=== PATIENT | female | born 1995 | race American Indian/Alaskan Native ===

== ENCOUNTER 2021-05-27 13:44 | Emergency (ER) | payer OTHER ==
[2021-05-27] MEDS ORDERED: KETOROLAC 30 MG/1 ML INJ IM ONE (16:59)
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
[2021-05-27 17:23] VITALS: BP 127/72
== END 2021-05-27 17:37 | disposition home or self-care (01) ==
LOC: ED 13:44
DX: M54.50 Low back pain, unspecified (principal); Z79.899 Other long term (current) drug therapy; V89.2XXA Person injured in unspecified motor-vehicle accident, traffic, initial encounter; Y93.89 Activity, other specified; Y92.488 Other paved roadways as the place of occurrence of the external cause; Y99.8 Other external cause status
CPT/HCPCS: 96372; 99282; J1885

== ENCOUNTER 2021-07-18 09:04 | Emergency (ER) | payer OTHER ==
[2021-07-18] MEDS ORDERED: ALUM-MAG HYDROXIDE-SIMETHICONE 200-200-20MG/5ML ORAL LIQD 30 ML PO ONE (09:15)
[2021-07-18] MEDS ORDERED: LIDOCAINE VISCOUS 2% 15 ML ORAL LIQD PO ONE (09:15)
[2021-07-18] MEDS ORDERED: FAMOTIDINE 20 MG TAB PO ONE (09:15)
[2021-07-18 09:17] VITALS: BP 125/84
--- NOTE | 2021-07-18 09:17 | Emergency Department Report ---
ED Abdominal Pain HPI - General Chief Complaint: Abdominal Pain Stated Complaint: HEADACHE/UPPER STOMACH PAIN Time Seen by Provider: 07/18/21 09:15 Source: patient Mode of arrival: Ambulatory Limitations: No Limitations - History of Present Illness Initial Comments: Patient is a 25-year-old morbidly obese female that comes to the emergency room with epigastric pain and nausea after eating at [employer]. Patient denies nausea vomiting, diarrhea or constipation. Denies fever or chills. Patient denies any medical history. Patient on arrival to the ER is ambulatory, [id number] and in no acute distress MD Complaint: abdominal pain -: Sudden Location: epigastric Improves With: eating Associated Symptoms: denies other symptoms, nausea. denies: vomiting, diarrhea, fever, chills, constipation, dysuria, hematemesis, hematochezia, melena, hematuria, anorexia, syncope - Related Data Previous Rx's Medication Instructions Recorded Last Taken Type Famotidine [Pepcid] 20 mg PO DAILY #30 tablet 07/18/21 Unknown Rx Allergies Allergy/AdvReac Type Severity Reaction Status Date / Time No Known Allergies Allergy Verified 05/27/21 15:51 ED Review of Systems ROS: Stated complaint: HEADACHE/UPPER STOMACH PAIN Other details as noted in HPI Comment: All other systems reviewed and negative ED Past Medical Hx - Past Medical History Previous Medical History?: No Additional medical history: obese - Surgical History Past Surgical History?: No - Family History Family history: no significant - Social History Smoking Status: Never Smoker Substance Use Type: None - Medications Home Medications: Home Medications Medication Instructions Recorded Confirmed Last Taken Type Famotidine [Pepcid] 20 mg PO DAILY #30 tablet 07/18/21 Unknown Rx ED Physical Exam - General Limitations: No Limitations General appearance: alert, in no apparent distress - Head Head exam: Present: atraumatic, normocephalic - Eye Eye exam: Present: normal appearance - ENT ENT exam: Present: mucous membranes moist - Neck Neck exam: Present: normal inspection - Respiratory Respiratory exam: Present: normal lung sounds bilaterally. Absent: respiratory distress - Cardiovascular Cardiovascular Exam: Present: regular rate, normal rhythm. Absent: systolic murmur, diastolic murmur, rubs, gallop - GI/Abdominal GI/Abdominal exam: Present: soft, normal bowel sounds - Extremities Exam Extremities exam: Present: normal inspection - Back Exam Back exam: Present: normal inspection - Neurological Exam Neurological exam: Present: alert, oriented X3 - Psychiatric Psychiatric exam: Present: normal affect, normal mood - Skin Skin exam: Present: warm, dry, intact, normal color. Absent: rash ED Course Vital Signs 07/18/21 09:14 Temperature 99.4 F Pulse Rate 95 H Respiratory 16 Rate Blood Pressure 125/84 O2 Sat by Pulse 98 Oximetry ED Medical Decision Making - Medical Decision Making Vital Signs 07/18/21 09:14 Temperature 99.4 F Pulse Rate 95 H Respiratory 16 Rate Blood Pressure 125/84 O2 Sat by Pulse 98 Oximetry Patient given a GI cocktail on arrival. Patient reports the GI cocktail did help her pain. Patient is in no acute distress. She is been playing on her phone the entire time she has been in the ER. She has had no nausea or vomiting. Vital signs are normal. She is taking p.o. She is very aloof when her H&P is conducted. She is a teacher. Vital Signs 07/18/21 09:14 Temperature 99.4 F Pulse Rate 95 H Respiratory 16 Rate Blood Pressure 125/84 O2 Sat by Pulse 98 Oximetry Abdominal exam is normal. Patient being discharged home with discharge plan of care including PCP/GI follow-up. She is been counseled on care and management of GERD patient verbalizes understanding - Differential Diagnosis GERD Critical care attestation.: If time is entered above; I have spent that time in minutes in the direct care of this critically ill patient, excluding procedure time. ED Disposition Clinical Impression: GERD (gastroesophageal reflux disease) Disposition: 01 HOME / SELF CARE / HOMELESS Is pt being admited?: No Does the pt Need Aspirin: No Condition: Stable Instructions: Indigestion, [id number], Abdominal Pain (ED) Additional Instructions: bland diet stay well hydrated with water Follow-up with PCP and GI as we discussed Referrals below Avoid spicy food Avoid alcohol Avoid Motrin Medication as ordered Prescriptions: Famotidine [Pepcid] 20 mg PO DAILY #30 tablet Referrals: RAYMOND FITZPATRICK MD [Staff Physician] - 3-5 Days BEA TAVAREZ MD [Staff Physician] - 3-5 Days Forms: Work/School Release Form(ED) Time of Disposition: 09:16
== END 2021-07-18 10:55 | disposition home or self-care (01) ==
LOC: ED 09:04
DX: K21.9 Gastro-esophageal reflux disease without esophagitis (principal)
CPT/HCPCS: 99282

== ENCOUNTER 2021-08-20 14:10 | Emergency (ER) | payer OTHER ==
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
[2021-08-20 22:01] VITALS: BP 124/78
== END 2021-08-20 22:15 | disposition home or self-care (01) ==
LOC: ED 14:10
DX: S83.91XA Sprain of unspecified site of right knee, initial encounter (principal); V89.2XXA Person injured in unspecified motor-vehicle accident, traffic, initial encounter; Y93.89 Activity, other specified; Y92.89 Other specified places as the place of occurrence of the external cause; Y99.8 Other external cause status
CPT/HCPCS: 99282

== ENCOUNTER 2021-10-17 13:51 | Emergency (ER) | payer OTHER ==
[2021-10-17] MEDS ORDERED: cephALEXin 500 MG CAP PO ONE (14:58)
[2021-10-17] MEDS ORDERED: dexAMETHasone 4 MG/ML VIAL IV ONE (14:58)
[2021-10-17] MEDS ORDERED: ACETAMINOPHEN 500 MG TAB PO ONE (14:58)
--- NOTE | 2021-10-17 14:58 | Emergency Department Report ---
ED ENT HPI - General Chief complaint: Sore Throat Stated complaint: SORETHROAT/FEVER/NAUSEA Time Seen by Provider: 10/17/21 14:42 Source: patient Mode of arrival: Ambulatory Limitations: No Limitations - History of Present Illness Initial comments: Patient is a 26-year-old female that comes to the ER via EMS with a sore throat. She also endorses a headache. She endorses chills. Denies fever. Denies cough. Last menstrual cycle 2 weeks ago. MD complaint: sore throat -: Gradual, days(s) Severity: mild Severity scale (0 -10): 2 Quality: aching Consistency: constant Improves with: none Worsens with: none Associated Symptoms: pain with swallowing, sore throat. denies: fever, cough, gum swelling, toothache, tinnitus, hearing loss, discharge from ear, rhinorrhea - Related Data Previous Rx's Medication Instructions Recorded Last Taken Type Famotidine [Pepcid] 20 mg PO DAILY #30 tablet 07/18/21 Unknown Rx Baclofen 20 mg PO Q12H PRN #16 tab 08/20/21 Unknown Rx Ibuprofen [Motrin] 800 mg PO Q8HR PRN #30 tablet 08/20/21 Unknown Rx Amoxicillin [Trimox CAP] 500 mg PO BID #20 capsule 10/17/21 Unknown Rx Allergies Allergy/AdvReac Type Severity Reaction Status Date / Time No Known Allergies Allergy Verified 08/20/21 21:24 ED Dental HPI - General Chief complaint: Sore Throat Stated complaint: SORETHROAT/FEVER/NAUSEA Time Seen by Provider: 10/17/21 14:42 Source: patient Mode of arrival: Ambulatory Limitations: No Limitations - Related Data Previous Rx's Medication Instructions Recorded Last Taken Type Famotidine [Pepcid] 20 mg PO DAILY #30 tablet 07/18/21 Unknown Rx Baclofen 20 mg PO Q12H PRN #16 tab 08/20/21 Unknown Rx Ibuprofen [Motrin] 800 mg PO Q8HR PRN #30 tablet 08/20/21 Unknown Rx Amoxicillin [Trimox CAP] 500 mg PO BID #20 capsule 10/17/21 Unknown Rx Allergies Allergy/AdvReac Type Severity Reaction Status Date / Time No Known Allergies Allergy Verified 08/20/21 21:24 ED Review of Systems ROS: Stated complaint: SORETHROAT/FEVER/NAUSEA Other details as noted in HPI Comment: All other systems reviewed and negative ED Past Medical Hx - Past Medical History Previous Medical History?: Yes Hx Asthma: Yes Additional medical history: obese - Surgical History Past Surgical History?: No - Family History Family history: no significant - Social History Smoking Status: Never Smoker Substance Use Type: None - Medications Home Medications: Home Medications Medication Instructions Recorded Confirmed Last Taken Type Famotidine [Pepcid] 20 mg PO DAILY #30 tablet 07/18/21 08/20/21 Unknown Rx Baclofen 20 mg PO Q12H PRN #16 tab 08/20/21 Unknown Rx Ibuprofen [Motrin] 800 mg PO Q8HR PRN #30 tablet 08/20/21 Unknown Rx Amoxicillin [Trimox CAP] 500 mg PO BID #20 capsule 10/17/21 Unknown Rx ED Physical Exam - General Limitations: No Limitations General appearance: alert, in no apparent distress - Head Head exam: Present: atraumatic, normocephalic - Eye Eye exam: Present: normal appearance - ENT ENT exam: Present: mucous membranes moist, other (Exudative pharyngitis) - Neck Neck exam: Present: normal inspection - Respiratory Respiratory exam: Present: normal lung sounds bilaterally. Absent: respiratory distress - Cardiovascular Cardiovascular Exam: Present: regular rate, normal rhythm. Absent: systolic murmur, diastolic murmur, rubs, gallop - GI/Abdominal GI/Abdominal exam: Present: soft, normal bowel sounds - Extremities Exam Extremities exam: Present: normal inspection - Back Exam Back exam: Present: normal inspection - Neurological Exam Neurological exam: Present: alert, oriented X3 - Psychiatric Psychiatric exam: Present: normal affect, normal mood - Skin Skin exam: Present: warm, dry, intact, normal color. Absent: rash ED Course Vital Signs 10/17/21 14:15 Temperature 99.7 F H Pulse Rate 115 H Respiratory 16 Rate Blood Pressure 125/79 [Left] O2 Sat by Pulse 100 Oximetry ED Medical Decision Making - Medical Decision Making Vital Signs 10/17/21 14:15 Temperature 99.7 F H Pulse Rate 115 H Respiratory 16 Rate Blood Pressure 125/79 [Left] O2 Sat by Pulse 100 Oximetry Medicated with Decadron, Tylenol and Keflex. Patient taking p.o. No abscess. No Ludewig's. No trismus. Heart rate on provider exam 90 Patient being discharged home with discharge plan of care including diet, activity, medications and follow-up. She verbalizes understanding - Differential Diagnosis URI Critical care attestation.: If time is entered above; I have spent that time in minutes in the direct care of this critically ill patient, excluding procedure time. ED Disposition Clinical Impression: Exudative pharyngitis Disposition: 01 HOME / SELF CARE / HOMELESS Is pt being admited?: No Does the pt Need Aspirin: No Condition: Stable Instructions: Pharyngitis, [id number] Additional Instructions: MEDS ORDERED TODAY Motrin or Tylenol for pain Take antibiotic until it is gone. When you finish your antibiotic follow-up with PCP to make sure you are getting better. Have given you referral below. Stay well-hydrated with water Forms: Work/School Release Form(ED) Time of Disposition: 15:01
[2021-10-17 15:54] VITALS: BP 121/79
== END 2021-10-17 15:52 | disposition home or self-care (01) ==
LOC: ED 13:51
DX: J02.9 Acute pharyngitis, unspecified (principal); J45.909 Unspecified asthma, uncomplicated
CPT/HCPCS: 96374; 99282; J1100